=== PATIENT | male | born 1960 | race Caucasian/White ===

== ENCOUNTER 2018-10-08 18:22 | Emergency (ER) | payer SELFPAY ==
[~2018-10-08] VITALS: Wt 125.8 kg
[2018-10-08 18:53] VITALS: BP 123/69; PULSE 90; RESP 18
== END 2018-10-08 22:10 | disposition left against medical advice (07) ==
LOC: FTE 18:22
DX: Z53.21 Procedure and treatment not carried out due to patient leaving prior to being seen by health care provider (principal)